=== PATIENT | female | born 1950 | race Caucasian/White ===

== ENCOUNTER 2018-05-24 13:47 | Emergency (ER) | payer BC ==
--- NOTE | 2018-05-24 14:44 | EDM.PDOC ---
ED HPI GENERAL MEDICAL PROBLEM - General Chief Complaint: Genitourinary Problem Stated Complaint: UTI Time Seen by Provider: 05/24/18 14:00 Source of Information: Reports: Patient History Limitations: Reports: No Limitations - History of Present Illness INITIAL COMMENTS - FREE TEXT/NARRATIVE: Patient is a 67-year-old who is seen with chief complaint of frequency urgency and lower abdominal discomfort she states it feels like a urinary tract infection Onset: Gradual Duration: Hour(s):, Getting Worse Location: Reports: Abdomen Quality: Reports: Ache, Burning, Pressure Severity: Mild Improves with: Reports: None Worsens with: Reports: Other (Voiding) Context: Reports: Lifting Associated Symptoms: Reports: No Other Symptoms Lower Abdominal Pain Score (Numeric/FACES): 2 - Related Data Allergies Allergy/AdvReac Type Severity Reaction Status Date / Time No Known Allergies Allergy Verified 05/24/18 13:57 Home Meds: Home Meds Calcium Carbonate/Vitamin D3 [Calcium 600-Vit D3 400 Tablet] 1 tab PO DAILY 02/03 [History] FLUoxetine [PROzac] 20 mg PO DAILY 05/24/18 [History] Garlic 100 mg PO DAILY 05/24/18 [History] Krill/Om-3/DHA/EPA/Phospho/Ast [Krill Oil 1,000 mg Softgel] 1 caplet PO DAILY [History] Non-Formulary Medication [NF Drug] 1 tab PO BID 05/24/18 [History] buPROPion HCl [Wellbutrin Xl] 150 mg PO DAILY 05/24/18 [History] Past Medical History HEENT History: Reports: Cataract [employer]OR History: Reports: Ectopic - Infectious Disease History Infectious Disease History: Reports: Rheumatic Fever - Past Surgical History HEENT Surgical History: Reports: Cataract Surgery GI Surgical History: Reports: Appendectomy Female Surgical History: Reports: Hysterectomy Musculoskeletal Surgical History: Reports: Other (See Below) Other Musculoskeletal Surgeries/Procedures:: Bone transplant Social & Family History - Tobacco Use Smoking Status *Q: Current Every Day Smoker Years of Tobacco use: 50 Packs/Tins Daily: 1.0 - Caffeine Use Caffeine Use: Reports: Coffee, Soda - Recreational Drug Use Recreational Drug Use: No ED ROS GENERAL - Review of Systems Review Of Systems: ROS reveals no pertinent complaints other than HPI. ED EXAM, GENERAL - Physical Exam Exam: See Below Exam Limited By: No Limitations General Appearance: Alert, WD/WN, No Apparent Distress Ears: Normal External Exam, Normal Canal, Hearing Grossly Normal, Normal TMs Ear Exam: Bilateral Ear: Auricle Normal, Canal Normal, TM normal Nose: Normal Inspection, Normal Mucosa, No Blood Throat/Mouth: Normal Inspection, Normal Lips, Normal Teeth, Normal Gums, Normal Oropharynx, Normal Voice, No Airway Compromise Head: Atraumatic, Normocephalic Neck: Normal Inspection, Supple, Non-Tender, Full Range of Motion Respiratory/Chest: No Respiratory Distress, Lungs Clear, Normal Breath Sounds, No Accessory Muscle Use, Chest Non-Tender Cardiovascular: Normal Peripheral Pulses, Regular Rate, Rhythm, No Edema, No Gallop, No JVD, No Murmur, No Rub GI/Abdominal: Normal Bowel Sounds, Soft, Non-Tender, No Organomegaly, No Distention, No Abnormal Bruit, No Mass (Female) Exam: Deferred Rectal (Female) Exam: Deferred Back Exam: Normal Inspection, Full Range of Motion, NT Extremities: Normal Inspection, Normal Range of Motion, Non-Tender, Normal Capillary Refill, No Pedal Edema Neurological: Alert, Oriented, CN II-XII Intact, Normal Cognition, Normal Gait, Normal Reflexes, No Motor/Sensory Deficits Course - Vital Signs Last Recorded V/S: Last Vital Signs Temp 98.1 F 05/24/18 13:58 Pulse 78 05/24/18 13:58 Resp 18 05/24/18 13:58 BP 120/67 05/24/18 13:58 Pulse Ox 98 05/24/18 13:58 - Orders/Labs/Meds Labs: Laboratory Tests 05/24/18 Range/Units 14:01 Specimen Type Urinvoid Urine Color Yellow Urine Appearance Clear Urine pH 7.5 (5.0-9.0) Ur Specific [place] 1.015 (1.005-1.030) Urine Protein Negative (NEGATIVE) mg/dL Urine Glucose (UA) Negative (NEGATIVE) mg/dL Urine Ketones Negative (NEGATIVE) mg/dL Urine Occult Blood Negative (NEGATIVE) Urine Nitrite Negative (NEGATIVE) Urine Bilirubin Negative (NEGATIVE) Urine Urobilinogen 0.2 (0.2-1.0) E.U./dL Ur Leukocyte Esterase Negative (NEGATIVE) Urine RBC 0-5 /HPF Urine WBC 5-10 H /HPF Ur Epithelial Cells Few /LPF Urine Bacteria Few (NONE TO FEW) /HPF Departure - Departure Time of Disposition: 14:43 Disposition: Home, Self-Care 01 Condition: Fair Clinical Impression: UTI, Urinary tract infectious disease - Discharge Information Referrals: Joana Lamb PA-C [Primary Care Provider] - Care Plan Goals: Exam revealed has stents no frequency with small trace of white cells will treat as a UTI follow-up if not better
== END 2018-05-24 14:50 | disposition home or self-care (01) ==
LOC: LL.ED 13:47
DX: N39.0 Urinary tract infection, site not specified (principal); F17.210 Nicotine dependence, cigarettes, uncomplicated; Z79.899 Other long term (current) drug therapy
CPT/HCPCS: 81001; 99283

== ENCOUNTER 2022-02-10 19:13 | Emergency (ER) | payer MEDICARE, OTHER ==
[2022-02-10] MEDS ORDERED: Albuterol/Ipratropium 3.0-0.5 MG/3 ML Neb Soln NEB ONE (19:25)
== END 2022-02-10 20:30 | disposition home or self-care (01) ==
LOC: LL.ED 19:13
DX: J45.21 Mild intermittent asthma with (acute) exacerbation (principal)
CPT/HCPCS: 94640; 99283; 99284; J7620-GY

== ENCOUNTER 2022-08-13 18:12 | Emergency (ER) | payer MEDICARE, OTHER ==
[2022-08-13] MEDS ORDERED: Sodium Chloride 0.9% 10 ML Syringe FLUSH PRN (18:28)
[2022-08-13] MEDS ORDERED: Albuterol/Ipratropium 3.0-0.5 MG/3 ML Neb Soln NEB PRN (18:30)
[2022-08-13] MEDS ORDERED: Acetaminophen 500 MG Tab PO ONE (18:31)
[2022-08-13] MEDS ORDERED: methylPREDNISolone Sodium Succinate 40 MG/1 ML SDV IVPUSH ONE (18:34)
[2022-08-13] MEDS ORDERED: methylPREDNISolone Sodium Succinate 40 MG/1 ML SDV ONE (18:49)
[2022-08-13 19:15] LABS: ANION GAP 10.1 meq/L (7-15); CHLORIDE,CL 102 mmol/L (98-107); ESTIMATED GFR 83 mL/min (>=60); SODIUM,NA 143 mmol/L (136-145)
[2022-08-13 19:43] LABS: CORONAVIRUS COVID-19 NAA NEGATIVE (NEGATIVE); RESPIRATORY SYNCYTIAL VIR NAA NEGATIVE (NEGATIVE)
== END 2022-08-13 20:20 | disposition home or self-care (01) ==
LOC: LL.ED 18:12
DX: J21.9 Acute bronchiolitis, unspecified (principal); J44.9 Chronic obstructive pulmonary disease, unspecified; F17.210 Nicotine dependence, cigarettes, uncomplicated; Z79.899 Other long term (current) drug therapy; Z90.49 Acquired absence of other specified parts of digestive tract; Z90.710 Acquired absence of both cervix and uterus; Z20.822 Contact with and (suspected) exposure to COVID-19
CPT/HCPCS: 0241U; 36415; 71046; 80053; 82550; 83605; 84484; 85025; 85379; 93005; 93010; 96374; 99284; 99285-25; A9270-GY; J2920; J7620-GY

== ENCOUNTER 2023-01-10 01:06 | Emergency (ER) | payer MEDICARE, OTHER ==
[2023-01-10] MEDS ORDERED: Ondansetron 4 MG/2 ML SDV IVPUSH PRN (01:33)
[2023-01-10 01:35] LABS: BASOPHILS ABSOLUTE AUTO 0.07 K/uL (0.00-0.20); BASOPHILS PERCENT AUTO 0.6 % (0.0-2.0); EOSINOPHILS ABSOLUTE AUTO 0.23 K/uL (0.00-0.50); EOSINOPHILS PERCENT AUTO 1.9 % (0.0-5.0); HEMATOCRIT 39.6 % (34.0-46.0); LYMPHOCYTES ABSOLUTE AUTO 1.82 K/uL (0.50-3.50); LYMPHOCYTES PERCENT AUTO 15.2 % (10.0-50.0); MEAN CORPUSCULAR HEMOGLOBIN 29.7 pg (28.2-33.3); MEAN CORPUSCULAR HGB CONC 32.8 g/dL (31.7-36.0); MEAN CORPUSCULAR VOLUME 90.6 fL (84.0-98.0); MONOCYTES ABSOLUTE AUTO 1.15 K/uL (0.00-1.00); MONOCYTES PERCENT AUTO 9.6 % (2.0-14.0); NEUTROPHILS PERCENT AUTO 72.7 % (45.0-80.0); PLATELET COUNT,PLT 300 K/uL (150-350); RED BLOOD CELL COUNT 4.37 M/uL (3.77-5.09); RED CELL DISTRIBUTION WIDTH 14.5 % (11.2-14.1)
[2023-01-10] MEDS: HYDROmorphone 0.5 MG/0.5 ML Syringe IVPUSH PRN ×2 (01:43→03:03)
[2023-01-10] MEDS: Sodium Chloride 0.9% 10 ML Syringe FLUSH PRN ×2 (01:44→03:04)
[2023-01-10 01:55] LABS: ALBUMIN 3.8 g/dL (3.4-5.0); BILIRUBIN TOTAL 0.3 mg/dL (0.2-1.0); CALCIUM 9.1 mg/dL (8.5-10.1); CARBON DIOXIDE,CO2 31.2 mmol/L (21.0-32.0); CREATININE 1.13 mg/dL (0.51-1.17); EST CRCL DRUG DOSING (CG) 34.54 mL/min; POTASSIUM,K 3.4 mmol/L (3.5-5.1)
[2023-01-10 01:56] LABS: ANION GAP 10.2 meq/L (7-15)
[2023-01-10] MEDS ORDERED: Take Home: Ondansetron 4 MG Tab.DIS, 5 Tab Pack PO ONE (03:01)
[2023-01-10] MEDS ORDERED: Take Home: oxyCODONE HCl 5 MG Tab, 5 Tab Pack PO ONE (03:01)
== END 2023-01-10 03:31 | disposition home or self-care (01) ==
LOC: LL.ED 01:06
DX: S00.83XA Contusion of other part of head, initial encounter (principal); M25.511 Pain in right shoulder; M25.521 Pain in right elbow; M25.561 Pain in right knee; J44.9 Chronic obstructive pulmonary disease, unspecified; Z72.0 Tobacco use; W18.30XA Fall on same level, unspecified, initial encounter
CPT/HCPCS: 36415; 70450; 70486; 73030-RT; 73070-RT; 73560-RT; 80053; 85025; 96374; 96375; 99284; 99284-25; A9270-GY; J1170; J2405; J3490; Q0162

== ENCOUNTER 2024-05-21 17:31 | Emergency (ER) | payer MEDICARE, OTHER ==
[2024-05-21] MEDS: Morphine 4 MG/ML Syringe IVPUSH ONE (17:42)
[2024-05-21] MEDS: Ondansetron 4 MG/2 ML SDV IVPUSH ONE (17:42)
[2024-05-21 18:06] LABS: BASOPHILS ABSOLUTE AUTO 0.05 K/uL (0.00-0.20); BASOPHILS PERCENT AUTO 0.5 % (0.0-2.0); EOSINOPHILS ABSOLUTE AUTO 0.11 K/uL (0.00-0.50); EOSINOPHILS PERCENT AUTO 1.1 % (0.0-5.0); HEMATOCRIT 44.6 % (34.0-46.0); HEMOGLOBIN 14.9 g/dL (11.7-15.5); LYMPHOCYTES ABSOLUTE AUTO 1.86 K/uL (0.50-3.50); LYMPHOCYTES PERCENT AUTO 18.1 % (10.0-50.0); MEAN CORPUSCULAR HEMOGLOBIN 30.3 pg (28.2-33.3); MEAN CORPUSCULAR HGB CONC 33.4 g/dL (31.7-36.0); MEAN CORPUSCULAR VOLUME 90.8 fL (84.0-98.0); MONOCYTES ABSOLUTE AUTO 1.07 K/uL (0.00-1.00); MONOCYTES PERCENT AUTO 10.4 % (2.0-14.0); NEUTROPHILS ABSOLUTE AUTO 7.21 K/uL (1.40-7.00); NEUTROPHILS PERCENT AUTO 69.9 % (45.0-80.0); PLATELET COUNT,PLT 303 K/uL (150-350); RED BLOOD CELL COUNT 4.91 M/uL (3.77-5.09); RED CELL DISTRIBUTION WIDTH 13.7 % (11.2-14.1); WHITE BLOOD CELL COUNT,WBC 10.3 K/uL (4.0-10.2)
[2024-05-21 18:14] LABS: ALANINE AMINOTRANSFERASE,ALT 42 U/L (12-78); ALBUMIN 3.8 g/dL (3.4-5.0); ALKALINE PHOSPHATASE 61 IU/L (46-116); ASPARTATE AMNIOTRANSFERASE,AST 29 U/L (15-37); BILIRUBIN TOTAL 0.6 mg/dL (0.2-1.0); BLOOD UREA NITROGEN,BUN 21 mg/dL (7-18); CALCIUM 9.6 mg/dL (8.5-10.1); CARBON DIOXIDE,CO2 29.8 mmol/L (21.0-32.0); CHLORIDE,CL 99 mmol/L (98-107); CREATININE 1.08 mg/dL (0.51-1.17); GLUCOSE RANDOM 141 mg/dL (70-99); PROTEIN TOTAL,TP 7.3 g/dL (6.4-8.2); SODIUM,NA 140 mmol/L (136-145)
[2024-05-21 18:17] LABS: ESTIMATED GFR 54 mL/min (>=60); POTASSIUM,K 2.8 mmol/L (3.5-5.1)
[2024-05-21] MEDS: Potassium Bicarbonate/Cit Ac 20 MEQ Effervescent Tab PO ONE ×2 (18:49→19:48)
[2024-05-21] MEDS: Bupivacaine 0.5% 10 ML SDV INJECT ONE (19:31)
[2024-05-21] MEDS: Lidocaine 1% 5 ML VIAL INJECT ONE (19:31)
[2024-05-21] MEDS: ceFAZolin 1 GM Vial IVPUSH ONE (19:35)
[2024-05-21] MEDS ORDERED: Potassium Chloride 20 MEQ Tab.ER PO ONE (19:45)
[2024-05-21] MEDS: Bacitracin Oint 1 GM U/D Packet TOP ONE (20:24)
[2024-05-21] MEDS: Morphine 2 MG/ML SYRINGE IVPUSH ONE (20:32)
== END 2024-05-21 20:50 ==
LOC: LL.ED 17:31
DX: S52.502B Unspecified fracture of the lower end of left radius, initial encounter for open fracture type I or II (principal); S52.602B Unspecified fracture of lower end of left ulna, initial encounter for open fracture type I or II; S00.12XA Contusion of left eyelid and periocular area, initial encounter; E87.6 Hypokalemia; E78.00 Pure hypercholesterolemia, unspecified; J44.9 Chronic obstructive pulmonary disease, unspecified; Z90.49 Acquired absence of other specified parts of digestive tract; Z79.899 Other long term (current) drug therapy; W18.30XA Fall on same level, unspecified, initial encounter
CPT/HCPCS: 25535; 36415; 73110-LT; 80053; 85025; 96374; 96375; 96376; 99284-25; A9270-GY; J0665; J0690; J2270; J2405; J3490